=== PATIENT | female | born 1965 | race Caucasian/White ===

== ENCOUNTER 2019-11-02 10:00 | Outpatient (CLI) | payer OTHER ==
--- NOTE | 2019-11-15 10:40 | Mammography Report ---
BILATERAL DIGITAL SCREENING MAMMOGRAM WITH AUGMENTATION: 11/02/2019 CLINICAL: Routine screening. Pre op for Bilaterla implant replacements and bilateral reduction. Comparison is made to exam dated: 07/24/2014 mammogram - [facility]. There are scatte red fibroglandular elements in both breasts. Reporting delay due to awaiting outside images for comparison. Bilateral breast implants are stable. No significant masses, calcifications, or other findings are seen in either breast. There has been no significant interval change. IMPRESSION: NEGATIVE There is no mammographic evidence of malignancy. A 1 year screening mammogram is recommended. This exam was interpreted at Station ID: [id number]. NOTE: For mammograms, a report in lay terms will be sent to the patient. Approximately 15% of breast malignancies will not be visualized mammographically. In the management of a palpable breast mass, a negative mammogram must not discourage biopsy of a clinically suspicious lesion. Electronically Signed By: Erendira erickson/joanie:11/15/2019 09:16:40 ACR BI-RADS Category 1: Negative 3341F PARENCHYMAL PATTERN: (A) - The breast(s) demonstrate(s) scattered fibroglandular densities. BI-RADS CATEGORY: (1) - 1 RECOMMENDATION: (ANNUAL) - Recommend routine annual screening mammography. [id number] 1 year screening LATERALITY: (B)
== END 2019-11-02 10:01 | disposition home or self-care (01) ==
LOC: DI 10:00
PROVIDERS: ATTEND Nurse Practitioner Family
DX: Z12.31 Encounter for screening mammogram for malignant neoplasm of breast (principal)
CPT/HCPCS: 77067